=== PATIENT | male | born 1950 | race Caucasian/White ===

== ENCOUNTER 2019-11-16 14:03 | Day surgery (SDC) | payer BC, MEDICARE ==
[2019-11-12 11:35] LABS: BASOPHILS # (AUTO) 0.1 X10'3 (0-0.2); BASOPHILS % (AUTO) 0.4 % (0-1); EOSINOPHILS # (AUTO) 0.4 X10'3 (0-0.9); EOSINOPHILS % (AUTO) 2.4 % (0-6); HEMOGLOBIN 13.9 g/dl (14.0-17.9); LYMPHOCYTES # (AUTO) 1.8 X10'3 (1.1-4.8); LYMPHOCYTES % (AUTO) 10.8 % (21-51); MEAN CORPUSCULAR HEMOGLOBIN 29.2 PG (27.0-31.0); MEAN CORPUSCULAR HGB CONC 33.2 g/dL (33.0-36.5); MEAN PLATELET VOLUME 7.9 FL (7.4-10.4); MONOCYTES % (AUTO) 6.1 % (2-12); NEUTROPHILS # (AUTO) 13.4 X10'3 (1.8-7.7); NEUTROPHILS % (AUTO) 80.3 % (42-75); PLATELET COUNT 208 X10'3 (140-440); RED BLOOD COUNT 4.77 X10'6 (4.70-6.10); RED CELL DISTRIBUTION WIDTH 14.6 % (11.5-14.5); WHITE BLOOD COUNT 16.7 X10'3 (4.5-11.0)
[2019-11-12 11:39] LABS: ALBUMIN 3.8 G/DL (3.4-5.0); ANION GAP 9 (8-16); BLOOD UREA NITROGEN 22 MG/DL (7-18); BUN/CREATININE RATIO 21.4 (5.4-32.0); CALCIUM 9.6 MG/DL (8.5-10.1); CHLORIDE 101 MMOL/L (99-107); CREATININE 1.03 MG/DL (0.60-1.10); GLUCOSE 107 MG/DL (70-104); POTASSIUM 4.8 MMOL/L (3.5-5.1); SODIUM 140 MMOL/L (135-145); TOTAL CARBON DIOXIDE 29.8 MMOL/L (24-32); eGFR 72 ML/MIN
[2019-11-12 11:43] LABS: PARTIAL THROMBOPLASTIN TIME 32 SECONDS (22-32)
[~2019-11-16] VITALS: Ht 180.3 cm; Wt 127.6 kg
[~2019-11-16 14:03] MED LIST: ALBU8.5H8 INH; APIX5TAB3 PO; ATOR40TA71 PO; BUDE10.22 INH; CARCD120C PO; LACT1CAP26 PO; LAN0.125T PO; LEVO750T46 PO; LISI-600 PO; METO-395 PO; SITA100T11 PO
[2019-11-16] MEDS ORDERED: MIDAZolam 1mg/ml 10ml vial IV ONE (14:25)
[2019-11-16] MEDS ORDERED: fentaNYL/PF 50MCG/1 ML 2ML syringe IV ONE (14:25)
[2019-11-16] MEDS ORDERED: normal saline 1000ml 1,000 ML IV PRN (14:25)
== END 2019-11-16 15:15 | disposition home or self-care (01) ==
LOC: SSTAY O 14:03
PROVIDERS: ATTEND Internal Medicine Interventional Cardiology
DX: I48.0 Paroxysmal atrial fibrillation (principal); Z53.8 Procedure and treatment not carried out for other reasons; J44.9 Chronic obstructive pulmonary disease, unspecified; I11.0 Hypertensive heart disease with heart failure; I50.32 Chronic diastolic (congestive) heart failure; E11.9 Type 2 diabetes mellitus without complications; E78.5 Hyperlipidemia, unspecified; I48.92 Unspecified atrial flutter; I27.9 Pulmonary heart disease, unspecified; E66.01 Morbid (severe) obesity due to excess calories; Z68.39 Body mass index [BMI] 39.0-39.9, adult; Z79.82 Long term (current) use of aspirin; Z79.899 Other long term (current) drug therapy; Z79.4 Long term (current) use of insulin; Z98.41 Cataract extraction status, right eye; Z98.42 Cataract extraction status, left eye; Z87.01 Personal history of pneumonia (recurrent)
CPT/HCPCS: 36415; 80048; 85025; 85610; 85730; 93005